=== PATIENT | male | born 1960 | race Caucasian/White ===

== ENCOUNTER 2019-11-18 14:27 | Emergency (ER) | payer BC ==
[~2019-11-18] VITALS: Ht 170.2 cm; Wt 79.4 kg
[2019-11-18 15:43] LABS: ABSOLUTE BASOPHILS 0.1 thou/uL (0.0-0.2); ABSOLUTE EOSINOPHILS 0.2 thou/uL (0.0-0.7); ABSOLUTE LYMPHOCYTES 1.7 thou/uL (0.8-5.3); ABSOLUTE MONOCYTES 0.4 thou/uL (0.0-1.2); ABSOLUTE NEUTROPHILS 5.5 thou/uL (1.6-8.1); BASOPHILS 0.9 %; EOSINOPHILS 2.4 %; HEMATOCRIT 50.8 % (42.0-52.0); HEMOGLOBIN 17.9 gm/dL (14.0-18.0); LYMPHOCYTES 21.4 %; MCH 31.1 pg (26.0-34.0); MCHC 35.2 g/dL (28.0-37.0); MCV 88.4 fL (80.0-100.0); MONOCYTES 5.5 %; MPV 7.5 fl. (7.2-11.1); NUCLEATED RBCS 0 /100WBC; PLATELET COUNT* 257 thou/uL (150-400); POLYS 69.8 %; RBC 5.74 mil/uL (4.50-6.00); RDW-CV 13.2 % (10.5-14.5); WBC 7.9 thou/uL (4.0-11.0)
[2019-11-18 15:52] LABS: CALCIUM 8.9 mg/dL (8.5-10.1); CREATININE 1.1 mg/dL (0.6-1.3); POTASSIUM 4.2 mmol/L (3.5-5.1)
[2019-11-18 15:57] LABS: ALBUMIN 3.9 g/dL (3.4-5.0); TOTAL BILIRUBIN 0.7 mg/dL (<0.1-1.0); TOTAL PROTEIN 7.6 g/dL (6.4-8.2)
[2019-11-18] MEDS ORDERED: MEDROLDOSEPACK PO (16:22)
[2019-11-18] MEDS ORDERED: PROAIR HFA8.5 GM INH (16:22)
[2019-11-18 16:49] VITALS: BP 131/84
--- NOTE | 2019-11-20 16:39 | EKG ---
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 : 1960 Requested By: Ace Pierce Order Number: [id number] MD: Rodriguez Mccord Measurements Intervals [place] Rate: 94 P: 35 GA: 144 QRS: 218 QRSD: 108 T: 26 QT: 358 QTc: 448 Interpretive Statements Sinus rhythm Incomplete right bundle-branch block Baseline wander in lead(s) I,III,aVL,V1,V3 No previous ECG available for comparison Electronically Signed On 11-20-2019 16:38:56 CONTRACTING ANALYST by Rodriguez Mccord [email or web address] <ELECTRONICALLY SIGNED> By: Rodriguez Mccord MD, [facility] 11/20/19 1638 1504 1504 Rodriguez Mccord MD, FACC /EPI
== END 2019-11-18 16:51 | disposition home or self-care (01) ==
LOC: M.ERS 14:27
PROVIDERS: Physician Assistant
DX: J70.5 Respiratory conditions due to smoke inhalation (principal); Z88.2 Allergy status to sulfonamides